=== PATIENT | female | born 1990 | race Caucasian/White ===

== ENCOUNTER 2018-07-07 14:53 | Emergency (ER) | payer SELFPAY, BC | END 2018-07-07 18:21 | disposition home or self-care (01) | LOC: M ED 14:53 | DX: R59.1 Generalized enlarged lymph nodes (principal); F17.210 Nicotine dependence, cigarettes, uncomplicated | CPT/HCPCS: 76857 ==

== ENCOUNTER 2018-10-09 19:46 | Emergency (ER) | payer MEDICAID, SELFPAY ==
[~2018-10-09] VITALS: Ht 160 cm; Wt 104.5 kg
[2018-10-09 20:35] LABS: INFLUENZA A AMPLIFICATION NEGATIVE (NEGATIVE); INFLUENZA B AMPLIFICATION NEGATIVE (NEGATIVE)
[2018-10-09 21:37] VITALS: BP 126/75
== END 2018-10-09 21:50 | disposition home or self-care (01) ==
LOC: M ED 19:46
DX: J02.9 Acute pharyngitis, unspecified (principal); Z72.0 Tobacco use; Z98.84 Bariatric surgery status

== ENCOUNTER 2019-01-14 10:22 | Emergency (ER) | payer MEDICAID ==
[~2019-01-14] VITALS: Ht 160 cm; Wt 104.9 kg
[2019-01-14 10:23] VITALS: BP 122/86
[2019-01-14] MEDS ORDERED: QC A650T3 PO (10:58)
[2019-01-14] MEDS ORDERED: AUGM875T28 PO (10:58)
[2019-01-14] MEDS ORDERED: ULTR50TA8 PO (10:58)
== END 2019-01-14 11:19 | disposition home or self-care (01) ==
LOC: M ED 10:22
DX: K02.9 Dental caries, unspecified (principal); K08.89 Other specified disorders of teeth and supporting structures; Z98.84 Bariatric surgery status; Z72.0 Tobacco use

== ENCOUNTER → 2021-10-22 | Outpatient (REF) | payer OTHER ==
[~2021-10-22] MED LIST: AUGM875T28 PO; QC A650T3 PO; ULTR50TA8 PO
[2021-10-22 17:46] LABS: HEMATOCRIT 39.2 % (36.0-47.0); HEMOGLOBIN 12.8 g/dl (12.0-15.5); MEAN CORPUSCULAR HEMOGLOBIN 27.6 pg (27.0-33.0); MEAN CORPUSCULAR HGB CONC 32.7 g/dl (32.0-36.5); MEAN CORPUSCULAR VOLUME 84.7 fl (80.0-96.0); PLATELET COUNT, AUTOMATED 293 10^3/uL (150-450); RED BLOOD COUNT 4.63 10^6/uL (4.00-5.40)
[2021-10-22 17:56] LABS: AMORPHOUS SEDIMENT SMALL (NEGATIVE); APPEARANCE, URINE HAZY (CLEAR); BACTERIA, URINE AUTO NEGATIVE (NEGATIVE); BILIRUBIN, URINE AUTO NEGATIVE (NEGATIVE); BLOOD, URINE BLOOD NEGATIVE (NEGATIVE); CALCIUM OXALATE CRYSTALS SMALL; COLOR, URINE YELLOW (YELLOW); GLUCOSE, URINE (UA) AUTO NEGATIVE (NEGATIVE); KETONE, URINE AUTO NEGATIVE (NEGATIVE); LEUKOCYTE ESTERASE, URINE AUTO TRACE (NEGATIVE); MUCUS, URINE LARGE (NEGATIVE); NITRITE, URINE AUTO NEGATIVE (NEGATIVE); PROTEIN, URINE AUTO NEGATIVE (NEGATIVE); RBC, URINE AUTO 3 /HPF (0-3); SPECIFIC GRAVITY URINE AUTO 1.015 (1.002-1.035); SQUAMOUS EPITHELIAL CELL UR AU 4 /HPF (0-6); UROBILINOGEN, URINE AUTO 0.2 mg/dL (0.0-2.0); WBC, URINE AUTO 4 /HPF (0-3)
[2021-10-22 19:08] LABS: HEMOGLOBIN A1c 5.2 %
[2021-10-22 20:49] LABS: HEPATITIS C VIRUS ABY INDEX 0.2 INDEX (<0.8)
[2021-10-23 10:30] LABS: HEPATITIS B SURFACE ANTIGEN NEGATIVE (NEGATIVE)
[2021-10-23 14:11] LABS: HIV 1&2 SCREEN CENTAUR NEGATIVE (NEGATIVE)
== END ==
LOC: M LAB REF 17:04
PROVIDERS: ATTEND Obstetrics & Gynecology Obstetrics
DX: Z34.81 Encounter for supervision of other normal pregnancy, first trimester (principal); Z3A.00 Weeks of gestation of pregnancy not specified

== ENCOUNTER → 2022-11-23 | Outpatient (REF) | payer OTHER ==
[2022-11-23 19:03] LABS: HEMATOCRIT 36.8 % (36.0-47.0); MEAN CORPUSCULAR HEMOGLOBIN 27.8 pg (27.0-33.0); MEAN CORPUSCULAR HGB CONC 32.6 g/dl (32.0-36.5); MEAN CORPUSCULAR VOLUME 85.4 fl (80.0-96.0); PLATELET COUNT, AUTOMATED 256 10^3/uL (150-450); RED BLOOD COUNT 4.31 10^6/uL (4.00-5.40); WHITE BLOOD COUNT 14.3 10^3/uL (4.0-10.0)
[2022-11-23 19:09] LABS: THYROID STIMULATING HORMONE 2.983 uIU/ML (0.55-4.78); TOTAL 25(OH) VITAMIN D 11.2 NG/ML (20.0-100.0)
[2022-11-23 19:27] LABS: HEPATITIS B SURFACE ANTIGEN NEGATIVE (NEGATIVE)
[2022-11-23 19:35] LABS: APPEARANCE, URINE HAZY (CLEAR); BACTERIA, URINE AUTO NEGATIVE (NEGATIVE); BILIRUBIN, URINE AUTO NEGATIVE (NEGATIVE); BLOOD, URINE BLOOD NEGATIVE (NEGATIVE); COLOR, URINE YELLOW (YELLOW); GLUCOSE, URINE (UA) AUTO NEGATIVE (NEGATIVE); KETONE, URINE AUTO NEGATIVE (NEGATIVE); LEUKOCYTE ESTERASE, URINE AUTO NEGATIVE (NEGATIVE); MUCUS, URINE SMALL (NEGATIVE); NITRITE, URINE AUTO NEGATIVE (NEGATIVE); PROTEIN, URINE AUTO NEGATIVE (NEGATIVE); RBC, URINE AUTO 0 /HPF (0-3); SPECIFIC GRAVITY URINE AUTO 1.013 (1.002-1.035); SQUAMOUS EPITHELIAL CELL UR AU 3 /HPF (0-6); UROBILINOGEN, URINE AUTO 0.2 mg/dL (0.0-2.0); WBC, URINE AUTO 2 /HPF (0-3)
[2022-11-23 19:39] LABS: HIV 1&2 SCREEN CENTAUR NEGATIVE (NEGATIVE)
[2022-11-23 19:49] LABS: HEPATITIS C VIRUS ABY INDEX < 0.0 INDEX (<0.8)
== END ==
LOC: M LAB REF 17:21
PROVIDERS: ATTEND Obstetrics & Gynecology
DX: Z34.82 Encounter for supervision of other normal pregnancy, second trimester (principal)

== ENCOUNTER → 2022-11-23 | Outpatient (REF) | payer OTHER ==
[2022-11-23 19:07] LABS: ALBUMIN 2.8 G/DL (3.2-5.2); ALKALINE PHOSPHATASE 70 U/L (46-116); ALT/SGPT < 9 U/L (7.0-40); AST/SGOT < 8 U/L (<34); BILIRUBIN,DIRECT < 0.1 MG/DL (<0.4); BILIRUBIN,TOTAL 0.3 MG/DL (0.3-1.2); TOTAL PROTEIN 6.3 G/DL (5.7-8.2)
== END ==
LOC: M LAB REF 17:25
PROVIDERS: ATTEND Preventive Medicine Undersea and Hyperbaric Medicine
DX: K80.10 Calculus of gallbladder with chronic cholecystitis without obstruction (principal)

== ENCOUNTER → 2024-02-07 | Outpatient (REF) | payer OTHER ==
[2024-02-07 18:48] LABS: HEMATOCRIT 39.4 % (36.0-47.0); HEMOGLOBIN 12.1 g/dl (12.0-15.5); MEAN CORPUSCULAR HEMOGLOBIN 24.3 pg (27.0-33.0); MEAN CORPUSCULAR HGB CONC 30.7 g/dl (32.0-36.5); MEAN CORPUSCULAR VOLUME 79.3 fl (80.0-96.0); PLATELET COUNT, AUTOMATED 300 10^3/uL (150-450); RED BLOOD COUNT 4.97 10^6/uL (4.00-5.40); WHITE BLOOD COUNT 11.8 10^3/uL (4.0-10.0)
[2024-02-07 19:26] LABS: FERRITIN 9.3 NG/ML (7.3-270.7); THYROID STIMULATING HORMONE 2.532 uIU/ML (0.55-4.78)
[2024-02-07 19:27] LABS: FREE T4 0.87 NG/DL (0.89-1.76)
[2024-02-07 19:30] LABS: FOLATE 8.53 NG/ML (>5.4)
== END ==
LOC: M LAB REF 17:35
PROVIDERS: ATTEND Internal Medicine
DX: D50.9 Iron deficiency anemia, unspecified (principal); R94.6 Abnormal results of thyroid function studies

== ENCOUNTER 2024-10-09 11:06 | Day surgery (SDC) | payer OTHER ==
[~2024-10-09] VITALS: Ht 160 cm; Wt 111.1 kg
[2024-10-09] MEDS ORDERED: LR 1,000 ML IV SCH ×2 (12:55→15:35)
[2024-10-09] MEDS: AMPICILLIN SOD/SULBACTAM SOD 3 GM in D5W MINI-BAG 100 ML IV ONE (14:59)
[2024-10-09] MEDS: LIDOCAINE 2% W/ EPINEPHRINE 1.7 ML DENTAL INJ As Ordered ONE (15:22)
[2024-10-09] MEDS ORDERED: KETOROLAC 30 MG/ML 1ML VIAL As Ordered ONE (15:22)
[2024-10-09] MEDS: CHLORHEXIDINE GLUCONATE 0.12 % 15ML UDC (PERIDEX ORAL RINSE) As Ordered ONE (15:24)
[2024-10-09] MEDS ORDERED: MIDAZOLAM INJ 2MG/2ML VIAL As Ordered ONE (15:24)
[2024-10-09] MEDS ORDERED: fentaNYL 100 MCG/2 ML INJECTION As Ordered ONE (15:24)
[2024-10-09] MEDS ORDERED: propofoL 200 MG/20 ML VIAL As Ordered ONE (15:24)
[2024-10-09] MEDS ORDERED: LIDOCAINE 2% 100MG/5ML SDV (FOR ANES.) As Ordered ONE (15:24)
[2024-10-09] MEDS ORDERED: ROCURONIUM BROMIDE 50MG/5ML VIAL As Ordered ONE (15:24)
[2024-10-09] MEDS ORDERED: SUGAMMADEX SODIUM 500 MG/5 ML VIAL (BRIDION) As Ordered ONE (15:25)
[2024-10-09] MEDS ORDERED: ACETAMINOPHEN 1000MG/100ML IV BAG As Ordered ONE (15:25)
[2024-10-09] MEDS ORDERED: ONDANSETRON 4MG 2ML VIAL As Ordered ONE (15:26)
[2024-10-09] MEDS: BUPivacaine LIPOSOME/PF 266MG 20ML VIAL (13.3MG/ML)(EXPAREL) As Ordered ONE (15:30)
[2024-10-09] MEDS ORDERED: fentaNYL 100 MCG/2 ML INJECTION IV PRN (15:35)
[2024-10-09] MEDS ORDERED: HYDROMORPHONE HCL 0.5 MG/ 0.5 ML SYRINGE IV PRN (15:35)
[2024-10-09] MEDS: ONDANSETRON 4MG 2ML VIAL IV PRN (16:05)
[2024-10-09] MEDS: oxyCODONE 5MG TAB PO PRN (16:05)
[2024-10-09 17:00] VITALS: BP 122/68; TEMP 98.2; O2SAT 96
[2024-10-10] MEDS ORDERED: OXYMETAZOLINE 0.05% NASAL SPRAY As Ordered ONE (14:35)
== END 2024-10-09 17:20 | disposition home or self-care (01) ==
LOC: M SDC 11:06
PROVIDERS: ATTEND Dentist
DX: K02.9 Dental caries, unspecified (principal); F40.232 Fear of other medical care; E66.01 Morbid (severe) obesity due to excess calories; Z68.41 Body mass index [BMI] 40.0-44.9, adult
CPT/HCPCS: 81025; 88300; D7210; J0131; J0295; J1100; J1885; J2250; J2405; J3010